=== PATIENT | female | born 1930 | race Caucasian/White ===

== ENCOUNTER 2016-10-09 22:03 | Emergency (ER) | payer OTHER ==
[~2016-10-09] VITALS: Ht 157.5 cm; Wt 81.3 kg
[2016-10-09 22:35] LABS: HEMATOCRIT 30.9 % (36.0-46.0); MCH 29.9 PG (29.0-34.0); MEAN PLAT.VOLUME 10.9 uM^3 (9.5-12.4); PLATELET COUNT 368 K/uL (156-360); RBC DIS.WIDTH-CV 14.1 % (11.8-14.6); RBC DIS.WIDTH-SD 45.5 % (39-53); RED BLOOD COUNT 3.51 M/uL (3.80-5.20); WHITE BLOOD COUNT 17.2 K/uL (4.1-10.2)
[2016-10-09 22:43] LABS: CHLORIDE 95 mEq/L (99-109); SODIUM 132 mEq/L (136-147)
[2016-10-09 22:45] LABS: GLUCOSE 132 mg/dL (70-99)
[2016-10-09 22:46] LABS: ANION GAP 13 MEQ/L (2-14)
[2016-10-09 22:48] LABS: ALKALINE PHOSPHATASE 391 IU/L (3-129)
[2016-10-09 22:49] LABS: GFR ESTIMATE (CALCULATED) 30 mL/min/
[2016-10-09 22:50] LABS: UREA NITROGEN (BUN) 28 mg/dL (9-23)
[2016-10-09 22:52] LABS: LIPASE 253 U/L (1.0-51.0)
[2016-10-09 23:23] LABS: ADD MIUA? YES; BILIRUBIN MODERATE; BLOOD NEGATIVE; COLOR AMBER ((YELLOW)); GLUCOSE (STRIP) NEGATIVE; KETONES NEGATIVE; LEUKOCYTES LARGE; NITRITE NEGATIVE; PROTEIN (STRIP) 30; SPECIFIC GRAVITY 1.021 (1.000-1.030)
[2016-10-10 01:03] LABS: EPITHELIAL CELLS 2+ /HPF; RED BLOOD CELLS 0-5 /HPF (0-5); WHITE BLOOD CELLS 20-30 /HPF (0-5)
[2016-10-10 01:04] LABS: BACTERIA 2+ /HPF; CASTS PRESENT /LPF; HYALINE CASTS RARE /LPF; MUCUS RARE /LPF; UCUL ADDED? YES
[2016-10-10 01:35] LABS: ICTOTEST POSITIVE
[2016-10-10 04:53] VITALS: BP 171/59
== END 2016-10-10 04:54 | disposition designated cancer center or children's hospital, planned readmission (85) ==
LOC: EME 22:03
DX: K80.50 Calculus of bile duct without cholangitis or cholecystitis without obstruction (principal); E80.6 Other disorders of bilirubin metabolism; N28.9 Disorder of kidney and ureter, unspecified; N39.0 Urinary tract infection, site not specified; R74.0 Nonspecific elevation of levels of transaminase and lactic acid dehydrogenase [LDH]; R74.8 Abnormal levels of other serum enzymes; R17 Unspecified jaundice
CPT/HCPCS: 74176; 80053; 81003; 83690; 85027; 87040; 87086; 99281; 99285; J2543